=== PATIENT | male | born 1960 | race Caucasian/White ===

== ENCOUNTER 2017-09-09 08:32 | Inpatient (IN) | payer BC ==
[~2017-09-09] VITALS: Ht 180.3 cm; Wt 97.5 kg
[2017-09-09] MEDS ORDERED: BYSTOLIC10 MG ORAL (08:40)
[2017-09-09 08:49] VITALS: BP 120/72
--- NOTE | 2017-09-09 08:55 | Emergency Room Report ---
History of Present Illness General Chief Complaint: General Complaint Source: Patient Present Illness [facility] Patient presents with complaints of increased swelling and redness to the left lower leg Patient reports significant previous drug abuse and infections in the past Patient also has heart valve replacement and has had endocarditis 2 days ago felt low-grade fever and chills Today noticed increased redness in the left leg and presents for further eval Denies any chest pain or pleurisy denies any vomiting or diarrhea Denies any neck pain or photophobia Pain to the leg is 6 out of 10 Allergies: Coded Allergies: No Known Allergies (Unverified , 09/09/17) Patient History Past Medical History: see triage record Pertinent Family History: none Reviewed Nursing Documentation: PMH: Agreed; PSxH: Agreed Review of Systems All Other Systems: negative except mentioned in HPI Physical Exam Vital Signs Date Time Temp Pulse Resp B/P (MAP) Pulse Ox O2 Delivery O2 Flow Rate FiO2 09/09/17 08:35 99.3 76 18 120/72 96 Room Air 99.3 Sp02 EP Interpretation: reviewed, normal General Appearance: well appearing, no apparent distress Head: normocephalic, atraumatic Eyes: bilateral eye PERRL, bilateral eye EOMI ENT: hearing grossly normal, normal pharynx, TMs + canals normal, uvula midline Neck: full range of motion, supple, no meningismus, no bony tend Respiratory: lungs clear, normal breath sounds, no rhonchi, no respiratory distress, no retraction, no accessory muscle use Cardiovascular #1: normal peripheral pulses, regular rate, rhythm, no edema, no gallop, no JVD, systolic murmur Gastrointestinal: normal bowel sounds, non tender, soft, no mass, no organomegaly, non-distended, no guarding, no hernia, no pulsatile mass, no rebound Genitourinary: no CVA tenderness Musculoskeletal: inflammation, swelling Neurologic: oriented x3, responsive, supervisor vat house III-XII nml as tested, motor strength/ tone normal, sensory intact Psychiatric: mood/affect normal Skin: other - Erythema circumferentially involving the left calf, tender to touch, mild swelling associated neurovascularly intact with good cap refills Lymphatic: normal inspection, no adenopathy Medical Decision Making Diagnostic Impression: Primary Impression: Cellulitis Additional Impression: Sepsis ER Course Multiple differentials considered Given the patient's multiple comorbidities including heart valve and previous endocarditis patient initiated on aggressive antibiotics hydration Ultrasound was also obtained for inpatient for further evaluation And patient stable for inpatient care Labs Test 09/09/17 09:13 White Blood Count 27.6 K/UL (4.8-10.8) Red Blood Count 5.28 M/UL (4.70-6.10) Hemoglobin 15.8 G/DL (14.2-18.0) Hematocrit 45.7 % (42.0-52.0) Mean Corpuscular Volume 87 FL (80-99) Mean Corpuscular Hemoglobin 30.0 PG (27.0-31.0) Mean Corpuscular Hemoglobin Concent 34.6 G/DL (32.0-36.0) Red Cell Distribution Width 12.0 % (11.6-14.8) Platelet Count 146 K/UL (150-450) Mean Platelet Volume 9.5 FL (6.5-10.1) Neutrophils (%) (Auto) % (45.0-75.0) Lymphocytes (%) (Auto) % (20.0-45.0) Monocytes (%) (Auto) % (1.0-10.0) Eosinophils (%) (Auto) % (0.0-3.0) Basophils (%) (Auto) % (0.0-2.0) Differential Total Cells Counted 100 Neutrophils % (Manual) 90 % (45-75) Lymphocytes % (Manual) 5 % (20-45) Monocytes % (Manual) 5 % (1-10) Eosinophils % (Manual) 0 % (0-3) Basophils % (Manual) 0 % (0-2) Band Neutrophils 0 % (0-8) Platelet Estimate Adequate Platelet Morphology Normal Red Blood Cell Morphology Normal Sodium Level 133 MMOL/L (136-145) Potassium Level 4.5 MMOL/L (3.5-5.1) Chloride Level 100 MMOL/L (98-107) Carbon Dioxide Level 24 MMOL/L (21-32) Anion Gap 9 mmol/L (5-15) Blood Urea Nitrogen 18 mg/dL (7-18) Creatinine 1.2 MG/DL (0.55-1.30) Estimat Glomerular Filtration Rate > 60 mL/min (>60) Glucose Level 155 MG/DL (74-106) Lactic Acid Level 1.80 mmol/L (0.66-2.22) Calcium Level 9.4 MG/DL (8.5-10.1) Total Bilirubin 1.0 MG/DL (0.2-1.0) Aspartate Amino Transf (AST/SGOT) 24 U/L (15-37) Alanine Aminotransferase (ALT/SGPT) 21 U/L (12-78) Alkaline Phosphatase 72 U/L (46-116) Total Creatine Kinase 73 U/L (26-308) Creatine Kinase MB < 0.5 NG/ML (0.0-3.6) Creatine Kinase MB Relative Index Total Protein 7.9 G/DL (6.4-8.2) Albumin 3.3 G/DL (3.4-5.0) Globulin 4.6 g/dL Albumin/Globulin Ratio 0.7 (1.0-2.7) Rhythm Strip Diag. Results EP Interpretation: yes Rate: 77 Rhythm: NSR, no PVC's, no ectopy Last Vital Signs Date Time Temp Pulse Resp B/P (MAP) Pulse Ox O2 Delivery O2 Flow Rate FiO2 09/09/17 08:49 99.3 76 18 120/72 96 Room Air 99.3 Status: improved Disposition: ADMITTED INPATIENT Condition: Serious Referrals: NOT APPLICABLE THIS PATIENT,RE (PCP) Katalina Cruz DO Sep 09, 2017 08:55
[2017-09-09] MEDS ORDERED: cefTRIAXone 1 GM in NS 55 ML IVPB ONE (09:00)
[2017-09-09] MEDS ORDERED: NS 1000ml 2,900 ML IVLG ONE (09:00)
[2017-09-09] MEDS: Morphine Sulfate 4mg/ml Inj IVP ONE ×2 (09:00→09:29)
[2017-09-09] MEDS ORDERED: Vancomycin 1.5gm/D5W 250ml 250 ML IVPB ONE (09:00)
[2017-09-09] MEDS ORDERED: cefTRIAXone 1 GM in D5W 55 ML IVPB SCH (09:30)
[2017-09-09 09:52] LABS: HEMATOCRIT 45.7 % (42.0-52.0); HEMOGLOBIN 15.8 G/DL (14.2-18.0); MEAN CORPUSCULAR VOLUME 87 FL (80-99); PLATELET COUNT 146 K/UL (150-450); RED BLOOD COUNT 5.28 M/UL (4.70-6.10)
[2017-09-09 09:57] LABS: WHITE BLOOD COUNT 27.6 K/UL (4.8-10.8)
[2017-09-09 10:23] LABS: ANION GAP 9 mmol/L (5-15); BLOOD UREA NITROGEN 18 mg/dL (7-18); CALCIUM 9.4 MG/DL (8.5-10.1); CARBON DIOXIDE 24 MMOL/L (21-32); CHLORIDE 100 MMOL/L (98-107); CREATININE 1.2 MG/DL (0.55-1.30); POTASSIUM 4.5 MMOL/L (3.5-5.1); SODIUM 133 MMOL/L (136-145)
[2017-09-09 10:37] LABS: ALANINE AMINOTRANSFERASE 21 U/L (12-78); ALBUMIN 3.3 G/DL (3.4-5.0); ALBUMIN/GLOBULIN RATIO 0.7 (1.0-2.7); ALKALINE PHOSPHATASE 72 U/L (46-116); ASPARTATE AMINO TRANSFERASE 24 U/L (15-37); CKMB < 0.5 NG/ML (0.0-3.6); CREATINE KINASE 73 U/L (26-308)
[2017-09-09 10:40] VITALS: BP 124/76
[2017-09-09 11:12] VITALS: BP 102/56
[2017-09-09] MEDS ORDERED: Cefepime HCl 1 GM in D5W 55 ML IVPB SCH (14:30)
[2017-09-09 15:53] VITALS: BP 108/57
[2017-09-09 19:49] VITALS: BP 124/75
[2017-09-09] MEDS: Cefepime HCl 1 GM in D5W 55 ML IVPB SCH (19:57)
[2017-09-09] MEDS: Vancomycin 1250mg/D5W 250ml IVPB SCH (20:38)
[2017-09-10 00:05] VITALS: BP 119/74
--- NOTE | 2017-09-10 02:30 | History and Physical Report ---
DATE OF ADMISSION: 09/09/2017 REASON FOR ADMISSION: Left lower extremity cellulitis. HISTORY OF PRESENT ILLNESS: This is a 56-year-old white male with history of vascular disease due to prior history of heroin injection, who developed some pain and redness of his left leg 1 to 2 days ago. Tactile fevers were noted as well and chills last night and based on his knowledge of prior infections, he came to the emergency room for treatment of cellulitis. The patient has not used heroin for almost 12 years. PAST MEDICAL HISTORY: Notable for endocarditis with subsequent pulmonic valve repair and prosthesis, hypertension, peripheral artery disease, and chronic osteomyelitis of the right tibia. ALLERGIES: None. FAMILY HISTORY: Noncontributory. SOCIAL HISTORY: No active smoking or alcohol. Prior heroin abuse as noted above. REVIEW OF SYSTEMS: A 10-point review of systems performed, all systems negative other than noted. PHYSICAL EXAMINATION: VITAL SIGNS: Temperature 99.3 degrees, blood pressure 120/72, heart rate 76, and respiratory rate 18. HEENT: Conjunctivae pink. Sclerae are anicteric. Oropharynx clear. Mucous membranes moist. NECK: Supple. Jugular venous pressure normal. No adenopathy. LUNGS: Clear. CARDIAC: Regular rhythm and rate. Normal S1 and S2. No appreciable murmur. ABDOMEN: Soft and nontender. EXTREMITIES: With 1+ edema on the left leg below the knee and warm, erythematous changes. There is also old stasis derm and healed infection site discolorations noted bilaterally. LABORATORY AND DIAGNOSTIC DATA: White count is 27.6 and hemoglobin 15.8. Sodium 133, potassium 4.5, bicarbonate 24, BUN 18, and creatinine 1.2. Lactic acid 1.8. Albumin 3.3. EKG, sinus rhythm with no acute abnormalities. Chest x-ray is pending for review. IMPRESSION: 1. Left lower extremity cellulitis. 2. Peripheral artery disease. 3. Distant history of heroin abuse. 4. History of pulmonic valve replacement. PLAN: 1. Hydration. 2. Broad-spectrum antibiotics. 3. Infectious Disease consultation. 4. Skin care. 5. DVT prophylaxis. 6. Echocardiogram. 7. Follow up results of cultures taken in the emergency room. Richard Goodman M.D. DR: FELECIA JOB#: [id number] CC:
[2017-09-10 04:06] VITALS: BP 124/64
[2017-09-10 08:23] VITALS: BP 129/82
[2017-09-10] MEDS: Cefepime HCl 1 GM in D5W 55 ML IVPB SCH ×2 (09:04→19:58)
[2017-09-10] MEDS: Vancomycin 1250mg/D5W 250ml IVPB SCH ×2 (10:23→17:59)
[2017-09-10 12:00] VITALS: BP 143/85
[2017-09-10] MEDS ORDERED: Heparin 2000 units/Ns 1000ml IV PRN (14:00)
[2017-09-10] MEDS ORDERED: Lidocaine 1% Plain 30 ml INJ PRN (14:00)
[2017-09-10 16:00] VITALS: BP 136/90
--- NOTE | 2017-09-10 16:31 | Diagnostic Imaging Report ---
Indications: Needs long-term IV access Technique: Ultrasound confirms patent compressible left basilic vein. Total sterile technique, including sterile probe cover and sterile gel, hat, mask,, sterile gown, large sterile drape, and preparation with 2% chlorhexidine utilized. Local anesthesia with 1% lidocaine. Under real-time ultrasound guidance, puncture basilic vein using 21-gauge needle, documented and archived, passage 0.018 guidewire under direct fluoroscopy, which was used to determine appropriate catheter length, exchange for 5 Telugu peel-away sheath. 5 Telugu Bard dual-lumen power PICC cut to 47 cm. It was inserted through the peel-away sheath. Peel-away sheath and guidewire removed. Catheter fixed to the skin. Both catheter ports aspirated and flushed. Patient tolerated procedure well, without immediate complication. Digital radiograph documents satisfactory catheter tip position, at the cavoatrial junction. Total fluoroscopy time 0.7 minutes. Total dose area product 16 dGycm2 Impression: Successful placement of left arm PICC under sonographic and fluoroscopic guidance, as described above.
--- NOTE | 2017-09-10 18:15 | Consultation ---
DATE OF CONSULTATION: 09/10/2017 INFECTIOUS DISEASE CONSULTATION CONSULTING PHYSICIAN: Juan Eaton M.D. REFERRING PHYSICIAN: Richard Goodman M.D. REASON FOR CONSULTATION: Left leg cellulitis. HISTORY OF PRESENTING ILLNESS: This is a 56-year-old gentleman with history of prior heroin injection years ago who developed some pain and redness and swelling in his left leg. He says he has not injected in years, but has had recurrent left leg cellulitis. An Infectious Diseases consultation has been obtained for antibiotics. PAST MEDICAL HISTORY: 1. History of endocarditis with pulmonary valve repair and valve replacement. 2. History of hypertension. 3. Peripheral arterial disease. 4. Chronic osteomyelitis of the right tibia. 5. Recurrent cellulitis of the left leg. MEDICATIONS: As an inpatient, he is on nebivolol, subcutaneous heparin, IV vancomycin, cefepime, Tylenol and Zofran. ALLERGIES: No known drug allergies. SOCIAL HISTORY: No history of smoking or alcohol, but he does have a history of prior intravenous heroin abuse years ago. FAMILY HISTORY: Positive for heart disease. REVIEW OF SYSTEMS: RESPIRATORY: He had fever and chills. No cough. No shortness of breath or chest pain. CARDIAC: No chest pain. No palpitations. No dizziness. No syncope. GASTROINTESTINAL: He had nausea. No vomiting. No abdominal pain or diarrhea. PHYSICAL EXAMINATION: VITAL SIGNS: Temperature of 99 degrees, T-max of 99.3 degrees, pulse of 70, respiratory rate 20, blood pressure 129/82 and O2 saturation of 99%. HEENT: Pupils equally reactive to light and accommodation. Mouth appears clean without thrush. NECK: Supple. No adenopathy. No JVD. CARDIOVASCULAR: Regular rate and rhythm. No murmurs. LUNGS: Clear to auscultation bilaterally. No crackles. No wheezes. ABDOMEN: Soft and nontender. No organomegaly. EXTREMITIES: No cyanosis, no clubbing, and no edema. Left leg erythema noted. LABORATORY AND DIAGNOSTIC DATA: White count 27.6, hemoglobin 15.8, hematocrit 45.7, MCV 87, and platelet count of 146,000 with neutrophils of 90%. Sodium 133, potassium 4.5, chloride 100, bicarbonate 24, BUN 18, creatinine 1.2 and glucose 155. Calcium 9.4. Total bilirubin 1. AST 24, ALT 21 and alkaline phosphatase 72. CK of 73. CK-MB less than 0.5. Total protein 7.9. Albumin 3.3. ASSESSMENT: 1. This is a 56-year-old, gentleman with history of hypertension as well as endocarditis with a pulmonary valve repair and valve replacement who comes in with recurrent left leg cellulitis. 2. He has history of prior heroin intravenous drug use. PLAN: 1. Continue IV vancomycin and cefepime. 2. We will order a 2D echocardiogram. 3. We will follow up blood cultures. I would like to thank, Dr. Goodman, for this consultation. Juan Eaton M.D. DR: GEOVANNY JOB#: [id number] CC: Richard Goodman M.D.
[2017-09-10 19:39] VITALS: BP 127/77
[2017-09-10] MEDS: Heparin 5000 units/ml inj SUBQ SCH (19:59)
[2017-09-11] VITALS: BP 100/60
--- NOTE | 2017-09-11 03:45 | Progress Note ---
DATE: 09/10/2017 INTERNAL MEDICINE PROGRESS NOTE SUBJECTIVE: The patient has poor IV access for infusion of antibiotics and blood draws. A PICC line was placed. The patient has headache and states that he usually takes his beta-lexi for migraines as well as blood pressure. OBJECTIVE: VITAL SIGNS: Blood pressure 122/65, pulse 69, respiratory rate 18, and afebrile. T-max 99.5. HEENT: Oropharynx clear with no thrush. NECK: Supple. LUNGS: Clear. CARDIAC: Regular rhythm and rate. Normal S1 and S2 with no murmur. ABDOMEN: Soft. EXTREMITIES: With no change in left lower extremity, warmth, redness, erythema, and slight edema. IMPRESSION: 1. Left lower extremity cellulitis. 2. Sepsis. 3. Leukocytosis. 4. Poor IV access. 5. Distant history of heroin abuse. 6. Hypertension. 7. Migraine syndrome. 8. Chronic osteomyelitis of right leg. PLAN: 1. Advance beta-lexi. 2. Continue hydration. 3. IV antibiotics. 4. Infectious Disease consultation. 5. Follow up laboratory studies pending. Rich Larose JOB#: [id number] CC:
[2017-09-11 04:00] VITALS: BP 101/51
[2017-09-11] MEDS: Vancomycin 1250mg/D5W 250ml IVPB SCH ×2 (04:57→17:30)
[2017-09-11 07:11] LABS: ALANINE AMINOTRANSFERASE 22 U/L (12-78); ALBUMIN 2.1 G/DL (3.4-5.0); ALBUMIN/GLOBULIN RATIO 0.5 (1.0-2.7); ALKALINE PHOSPHATASE 70 U/L (46-116); ANION GAP 10 mmol/L (5-15); ASPARTATE AMINO TRANSFERASE 11 U/L (15-37); BILIRUBIN,TOTAL 0.3 MG/DL (0.2-1.0); BLOOD UREA NITROGEN 12 mg/dL (7-18); CALCIUM 8.5 MG/DL (8.5-10.1); CARBON DIOXIDE 24 MMOL/L (21-32); CHLORIDE 105 MMOL/L (98-107); POTASSIUM 2.9 MMOL/L (3.5-5.1); SODIUM 138 MMOL/L (136-145)
[2017-09-11 07:37] LABS: BASOPHILS % (AUTO) 0.4 % (0.0-2.0); EOSINOPHILS % (AUTO) 0.5 % (0.0-3.0); HEMATOCRIT 37.8 % (42.0-52.0); HEMOGLOBIN 13.5 G/DL (14.2-18.0); LYMPHOCYTES % (AUTO) 10.2 % (20.0-45.0); MEAN CORPUSCULAR VOLUME 87 FL (80-99); MONOCYTES % (AUTO) 7.7 % (1.0-10.0); NEUTROPHILS % (AUTO) 81.2 % (45.0-75.0); PLATELET COUNT 132 K/UL (150-450); RED BLOOD COUNT 4.33 M/UL (4.70-6.10)
[2017-09-11 08:00] VITALS: BP 129/90
[2017-09-11] MEDS: Heparin 5000 units/ml inj SUBQ SCH ×2 (08:27→20:19)
[2017-09-11] MEDS: Cefepime HCl 1 GM in D5W 55 ML IVPB SCH ×2 (08:28→21:34)
--- NOTE | 2017-09-11 11:05 | Infectious Diseases Prog Note ---
Assessment/Plan Assessment/Plan antibiotics : vancomycin iv, cefepime A 1. left leg cellulitis 2. history of heroin use 3. hypertension 4. s/p AVR 5. s/p pulmonary valve repair P 1. continue iv vancomycin, cefepime 2. add clindamycin 3. will follow up cultures Subjective Constitutional: Denies: fever, chills Respiratory: Denies: shortness of breath, dry cough Gastrointestinal/Abdominal: Denies: nausea, vomiting, diarrhea Musculoskeletal: Reports: pain - decreased Allergies: Coded Allergies: No Known Allergies (Unverified , 09/09/17) Objective Vital Signs Last 24 Hour Vital Signs Date Time Temp Pulse Resp B/P (MAP) Pulse Ox O2 Delivery O2 Flow Rate FiO2 09/11/17 08:00 97.8 60 19 129/90 100 Room Air 97.8 09/11/17 04:00 97.0 55 20 101/51 99 Room Air 97.0 09/11/17 00:00 97.0 52 20 100/60 100 Room Air 97.0 09/10/17 19:39 98.6 69 20 127/77 97 Room Air 98.6 09/10/17 16:17 Room Air 09/10/17 16:00 99.5 73 20 136/90 99 99.5 09/10/17 12:00 Room Air 09/10/17 12:00 98.6 72 19 143/85 97 98.6 Height (Feet): 5 Height (Inches): 11.00 Weight (Pounds): 215 Respiratory/Chest: lungs clear Cardiovascular: normal rate, regular rhythm, no gallop/murmur Abdomen: soft, non tender Extremities: other - + edema, erythema left leg Laboratory Tests Test 09/11/17 05:15 White Blood Count 16.0 K/UL (4.8-10.8) H Red Blood Count 4.33 M/UL (4.70-6.10) L Hemoglobin 13.5 G/DL (14.2-18.0) L Hematocrit 37.8 % (42.0-52.0) L Mean Corpuscular Volume 87 FL (80-99) Mean Corpuscular Hemoglobin 31.1 PG (27.0-31.0) H Mean Corpuscular Hemoglobin Concent 35.6 G/DL (32.0-36.0) Red Cell Distribution Width 12.0 % (11.6-14.8) Platelet Count 132 K/UL (150-450) L Mean Platelet Volume 10.3 FL (6.5-10.1) H Neutrophils (%) (Auto) 81.2 % (45.0-75.0) H Lymphocytes (%) (Auto) 10.2 % (20.0-45.0) L Monocytes (%) (Auto) 7.7 % (1.0-10.0) Eosinophils (%) (Auto) 0.5 % (0.0-3.0) Basophils (%) (Auto) 0.4 % (0.0-2.0) Erythrocyte Sedimentation Rate 78 MM/HR (0-20) H Sodium Level 138 MMOL/L (136-145) Potassium Level 2.9 MMOL/L (3.5-5.1) L Chloride Level 105 MMOL/L (98-107) Carbon Dioxide Level 24 MMOL/L (21-32) Anion Gap 10 mmol/L (5-15) Blood Urea Nitrogen 12 mg/dL (7-18) Creatinine 1.0 MG/DL (0.55-1.30) Estimat Glomerular Filtration Rate > 60 mL/min (>60) Glucose Level 148 MG/DL (74-106) H Calcium Level 8.5 MG/DL (8.5-10.1) Total Bilirubin 0.3 MG/DL (0.2-1.0) Aspartate Amino Transf (AST/SGOT) 11 U/L (15-37) L Alanine Aminotransferase (ALT/SGPT) 22 U/L (12-78) Alkaline Phosphatase 70 U/L (46-116) Total Protein 6.0 G/DL (6.4-8.2) L Albumin 2.1 G/DL (3.4-5.0) L Globulin 3.9 g/dL Albumin/Globulin Ratio 0.5 (1.0-2.7) L Current Medications Medications (Trade) Dose Ordered Sig/Arian Route PRN Reason Start Time Stop Time Status Last Admin Dose Admin Acetaminophen (Tylenol) 650 mg Q4H PRN ORAL Mild Pain/Temp > 100.5 09/09/17 13:30 10/09/17 13:29 09/10/17 02:25 Cefepime HCl 1 gm/ Dextrose 55 ml @ 110 mls/hr EVERY 12 HOURS IVPB 09/09/17 21:00 09/16/17 20:59 09/11/17 08:28 Heparin Sodium (Porcine) (Heparin 5000 units/ml) 5,000 units EVERY 12 HOURS SUBQ 09/10/17 21:00 10/10/17 20:59 Nebivolol (Bystolic) 20 mg DAILY@0630 ORAL 09/11/17 06:30 10/11/17 06:29 Ondansetron HCl (Zofran) 4 mg Q6H PRN IVP Nausea & Vomiting 09/09/17 13:30 10/09/17 13:29 Potassium Chloride (K-Dur) 40 meq ONCE ORAL 09/11/17 11:00 09/11/17 12:00 Sodium Chloride 1,000 ml @ 100 mls/hr Q10H IV 09/09/17 11:45 10/09/17 11:44 09/11/17 04:50 Vancomycin HCl (Vanco rx to dose) 1 ea DAILY PRN MISC Per rx protocol 09/09/17 11:30 10/09/17 11:29 Vancomycin HCl/ Dextrose 250 ml @ 166.667 mls/hr Q12HR@0600,1800 IVPB 09/10/17 18:00 09/14/17 20:59 09/11/17 04:57 KELL DE LEON Sep 11, 2017 11:05
[2017-09-11 12:00] VITALS: BP 118/82
[2017-09-11] MEDS: Clindamycin 600mg 50 ML IV SCH ×2 (13:59→22:34)
[2017-09-11 16:00] VITALS: BP 123/79
[2017-09-11] MEDS ORDERED: Tubing IV Secondary IV ONE (20:38)
[2017-09-11 20:58] VITALS: BP 135/80
[2017-09-11] MEDS: Dyna-Hex 2% Top Sol 2oz TOPIC SCH (21:33)
--- NOTE | 2017-09-12 00:30 | Progress Note ---
DATE: 09/11/2017 INTERNAL MEDICINE PROGRESS NOTE SUBJECTIVE: The patient still has pain in his left leg. Swelling and redness have persisted. Vitals are stable. The patient had a PICC line placed for adequate IV access. LABORATORY DATA: White count has decreased to 16. Chemistry panel notable for potassium of 2.9, albumin 2.1. IMPRESSION: 1. Cellulitis, left lower extremity. 2. Hypokalemia. 3. Moderate protein-calorie malnutrition. 4. Peripheral artery disease. PLAN: 1. Continue IV antibiotics. 2. Protein supplement. 3. Check MRI of the leg. 4. Infectious Disease consultation appreciated. Richard Goodman M.D. DR: Loki JOB#: [id number] CC:
[2017-09-12 00:54] VITALS: BP 123/78
[2017-09-12 05:46] LABS: ANION GAP 7 mmol/L (5-15); BLOOD UREA NITROGEN 17 mg/dL (7-18); CALCIUM 8.8 MG/DL (8.5-10.1); CARBON DIOXIDE 27 MMOL/L (21-32); CHLORIDE 104 MMOL/L (98-107); CREATININE 1.1 MG/DL (0.55-1.30); POTASSIUM 3.8 MMOL/L (3.5-5.1); SODIUM 138 MMOL/L (136-145)
[2017-09-12 05:48] LABS: BASOPHILS % (AUTO) 1.2 % (0.0-2.0); EOSINOPHILS % (AUTO) 1.1 % (0.0-3.0); HEMATOCRIT 37.6 % (42.0-52.0); HEMOGLOBIN 13.3 G/DL (14.2-18.0); LYMPHOCYTES % (AUTO) 15.2 % (20.0-45.0); MEAN CORPUSCULAR VOLUME 87 FL (80-99); MONOCYTES % (AUTO) 9.1 % (1.0-10.0); NEUTROPHILS % (AUTO) 73.4 % (45.0-75.0); PLATELET COUNT 159 K/UL (150-450); RED BLOOD COUNT 4.31 M/UL (4.70-6.10); RED CELL DISTRIBUTION WIDTH 12.1 % (11.6-14.8)
[2017-09-12 06:00] VITALS: BP 152/89
[2017-09-12] MEDS: Clindamycin 600mg 50 ML IV SCH ×3 (06:00→20:38)
[2017-09-12] MEDS: Vancomycin 1250mg/D5W 250ml IVPB SCH ×3 (06:47→22:56)
[2017-09-12 08:00] VITALS: BP 156/74
[2017-09-12] MEDS: Cefepime HCl 1 GM in D5W 55 ML IVPB SCH ×2 (09:21→20:38)
[2017-09-12] MEDS: Heparin 5000 units/ml inj SUBQ SCH ×2 (09:23→20:40)
[2017-09-12 12:00] VITALS: BP 148/84
--- NOTE | 2017-09-12 13:00 | Infectious Diseases Prog Note ---
Assessment/Plan Assessment/Plan A 1. left leg cellulitis 2. history of heroin use 3. hypertension 4. s/p AVR 5. s/p pulmonary valve repair P 1. continue iv vancomycin, cefepime and clindamycin 2. will follow up cultures & MRI Subjective Constitutional: Reports: no symptoms Respiratory: Reports: no symptoms Cardiovascular: Reports: no symptoms Gastrointestinal/Abdominal: Reports: no symptoms Genitourinary: Reports: no symptoms Musculoskeletal: Reports: pain, other - in left leg Allergies: Coded Allergies: No Known Allergies (Unverified , 09/09/17) Objective Vital Signs Last 24 Hour Vital Signs Date Time Temp Pulse Resp B/P (MAP) Pulse Ox O2 Delivery O2 Flow Rate FiO2 09/12/17 12:00 97.9 59 18 148/84 Room Air 97.9 09/12/17 08:00 97.9 60 18 156/74 97.9 09/12/17 06:00 97.9 61 18 152/89 100 Room Air 97.9 09/12/17 00:54 97.0 59 18 123/78 98 Room Air 97.0 09/11/17 20:58 99.3 63 18 135/80 96 Room Air 99.3 09/11/17 16:00 98.0 68 19 123/79 99 Room Air 98.0 Height (Feet): 5 Height (Inches): 11.00 Weight (Pounds): 215 General Appearance: no acute distress HEENT: mucous membranes moist Respiratory/Chest: lungs clear Cardiovascular: normal rate, systolic murmur Abdomen: soft, non tender Extremities: other - edema, erythema & tenderness of left legs above ankle Skin: other - skin scars in both legs Neurologic/Psychiatric: alert, oriented x 3, responsive Laboratory Tests Test 09/12/17 05:00 White Blood Count 13.0 K/UL (4.8-10.8) H Red Blood Count 4.31 M/UL (4.70-6.10) L Hemoglobin 13.3 G/DL (14.2-18.0) L Hematocrit 37.6 % (42.0-52.0) L Mean Corpuscular Volume 87 FL (80-99) Mean Corpuscular Hemoglobin 30.8 PG (27.0-31.0) Mean Corpuscular Hemoglobin Concent 35.3 G/DL (32.0-36.0) Red Cell Distribution Width 12.1 % (11.6-14.8) Platelet Count 159 K/UL (150-450) Mean Platelet Volume 9.4 FL (6.5-10.1) Neutrophils (%) (Auto) 73.4 % (45.0-75.0) Lymphocytes (%) (Auto) 15.2 % (20.0-45.0) L Monocytes (%) (Auto) 9.1 % (1.0-10.0) Eosinophils (%) (Auto) 1.1 % (0.0-3.0) Basophils (%) (Auto) 1.2 % (0.0-2.0) Sodium Level 138 MMOL/L (136-145) Potassium Level 3.8 MMOL/L (3.5-5.1) Chloride Level 104 MMOL/L (98-107) Carbon Dioxide Level 27 MMOL/L (21-32) Anion Gap 7 mmol/L (5-15) Blood Urea Nitrogen 17 mg/dL (7-18) Creatinine 1.1 MG/DL (0.55-1.30) Estimat Glomerular Filtration Rate > 60 mL/min (>60) Glucose Level 128 MG/DL (74-106) H Calcium Level 8.8 MG/DL (8.5-10.1) Magnesium Level 1.8 MG/DL (1.8-2.4) Vancomycin Level Trough 9.5 ug/mL (5.0-12.0) Current Medications Medications (Trade) Dose Ordered Sig/Arian Route PRN Reason Start Time Stop Time Status Last Admin Dose Admin Acetaminophen (Tylenol) 650 mg Q4H PRN ORAL Mild Pain/Temp > 100.5 09/09/17 13:30 10/09/17 13:29 09/10/17 02:25 Cefepime HCl 1 gm/ Dextrose 55 ml @ 110 mls/hr EVERY 12 HOURS IVPB 09/09/17 21:00 09/16/17 20:59 09/12/17 09:21 Chlorhexidine Gluconate (Fiona-Hex 2%) 1 applic DAILY@2000 TOPIC 09/11/17 21:00 10/12/17 19:59 09/11/17 21:33 Clindamycin HCl/ Dextrose 50 ml @ 100 mls/hr Q8HR IV 09/11/17 14:00 09/18/17 13:59 09/12/17 06:00 Heparin Sodium (Porcine) (Heparin 5000 units/ml) 5,000 units EVERY 12 HOURS SUBQ 09/10/17 21:00 10/10/17 20:59 09/12/17 09:23 Nebivolol (Bystolic) 20 mg DAILY@0630 ORAL 09/11/17 06:30 10/11/17 06:29 09/12/17 06:11 Ondansetron HCl (Zofran) 4 mg Q6H PRN IVP Nausea & Vomiting 09/09/17 13:30 10/09/17 13:29 Sodium Chloride 1,000 ml @ 100 mls/hr Q10H IV 09/09/17 11:45 10/09/17 11:44 09/11/17 17:37 Vancomycin HCl (Vanco rx to dose) 1 ea DAILY PRN MISC Per rx protocol 09/09/17 11:30 10/09/17 11:29 Vancomycin HCl/ Dextrose 250 ml @ 166.667 mls/hr Q8HR IVPB 09/12/17 06:10 09/15/17 17:59 09/12/17 06:47 MARYANN DE JESUS Sep 12, 2017 13:00
[2017-09-12 16:00] VITALS: BP 143/88
--- NOTE | 2017-09-12 17:51 | Cardiology Report ---
APPROVED REPORT EKG Measurement Heart [id number] Normal sinus rhythm Normal ECG
[2017-09-12 20:00] VITALS: BP 145/93
[2017-09-12] MEDS ORDERED: Dyna-Hex 2% Top Sol 2oz TOPIC SCH (20:00)
[2017-09-12] MEDS: Dyna-Hex 2% Top Sol 2oz TOPIC SCH (20:37)
[2017-09-13] MEDS ORDERED: Gadavist 7.5mMol/7.5ml vial IV PRN (01:45)
[2017-09-13 04:00] VITALS: BP 129/88
[2017-09-13] MEDS: Clindamycin 600mg 50 ML IV SCH ×3 (05:45→22:41)
[2017-09-13] MEDS: Vancomycin 1250mg/D5W 250ml IVPB SCH ×3 (06:30→23:56)
--- NOTE | 2017-09-13 07:45 | Progress Note ---
DATE: 09/12/2017 INTERNAL MEDICINE PROGRESS NOTE SUBJECTIVE: Pain is slightly diminished in the left leg, but the ankle is worse. Redness has diminished. OBJECTIVE: Vital signs are stable. Exam as noted. IMPRESSION: 1. History of pulmonary valve replacement. 2. Left leg cellulitis. 3. Ankle pain. 4. History of heroin abuse. 5. Hypertension. PLAN: 1. Continue intravenous antibiotics. 2. Skin care. 3. Await MRI studies. 4. Echocardiogram will be reviewed. Richard Goodman M.D. DR: DARWIN JOB#: [id number] CC:
[2017-09-13 07:51] VITALS: BP 117/72
[2017-09-13] MEDS: Cefepime HCl 1 GM in D5W 55 ML IVPB SCH ×2 (08:56→20:41)
[2017-09-13] MEDS: Heparin 5000 units/ml inj SUBQ SCH ×2 (08:58→20:44)
--- NOTE | 2017-09-13 10:55 | Cardiology Report ---
APPROVED REPORT EXAM: Two-dimensional and M-mode echocardiogram with Doppler and color Doppler. INDICATION ENDOCARDITIS M-Mode DIMENSIONS IVSd0.9 (0.7-1.1cm)Left Atrium (MM)3.2 (1.6-4.0cm) LVDd5.8 (3.5-5.6cm)Aortic Root3.3 (2.0-3.7cm) PWd1.1 (0.7-1.1cm)Aortic Cusp Exc.1.9 (1.5-2.0cm) IVSs1.7 cm LVDs4.0 (2.5-4.0cm) PWs1.7 cm Technically difficult study due to poor apical acoustical windows. Normal left ventricular chamber size, systolic function and wall motion to extent visualized. Left ventricular ejection fraction estimated to be 60%. No evidence of left ventricular hypertrophy . No evidence of pericardial effusion. All other cardiac chamber sizes are within normal limits. Mildly Focal aortic valve sclerosis with adequate cusp excursion. MildlyThickened mitral valve leaflets with normal excursion. Mildly Mitral annulus and aortic root calcification. Normal pulmonic valve structure. Normal tricuspid valve structure. IVC at size 2.3 with physiologic collapse . A color flow and spectral Doppler study was performed and revealed: No aortic regurgitation. Trace mitral regurgitation. Normal left ventricular diastolic function . Mild tricuspid regurgitation. Tricuspid systolic velocities suggests peak right ventricular systolic pressure of 39mmHg, Trace Pulmonic regurgitation present.
--- NOTE | 2017-09-13 11:36 | Infectious Diseases Prog Note ---
Assessment/Plan Assessment/Plan antibiotics : vancomycin iv, cefepime, clindamycin A 1. left leg cellulitis improving 2. history of heroin use 3. hypertension 4. s/p AVR 5. s/p pulmonary valve repair P 1. continue iv vancomycin, cefepime, clindamycin 2. will follow up cultures Subjective Constitutional: Denies: fever, chills Respiratory: Denies: shortness of breath, dry cough Gastrointestinal/Abdominal: Denies: nausea, vomiting, diarrhea Musculoskeletal: Reports: pain - decreased Allergies: Coded Allergies: No Known Allergies (Unverified , 09/09/17) Objective Vital Signs Last 24 Hour Vital Signs Date Time Temp Pulse Resp B/P (MAP) Pulse Ox O2 Delivery O2 Flow Rate FiO2 09/13/17 07:51 97.7 53 20 117/72 97 Room Air 97.7 09/13/17 04:00 97.3 59 20 129/88 Room Air 97.3 09/12/17 20:00 97.7 63 20 145/93 Room Air 97.7 09/12/17 16:00 97.8 60 19 143/88 Room Air 97.8 09/12/17 12:00 97.9 59 18 148/84 Room Air 97.9 Height (Feet): 5 Height (Inches): 11.00 Weight (Pounds): 215 Respiratory/Chest: lungs clear Cardiovascular: normal rate, regular rhythm, no gallop/murmur Abdomen: soft, non tender Extremities: other - left leg erythema decreased, + edema Current Medications Medications (Trade) Dose Ordered Sig/Arian Route PRN Reason Start Time Stop Time Status Last Admin Dose Admin Acetaminophen (Tylenol) 650 mg Q4H PRN ORAL Mild Pain/Temp > 100.5 09/09/17 13:30 10/09/17 13:29 09/10/17 02:25 Cefepime HCl 1 gm/ Dextrose 55 ml @ 110 mls/hr EVERY 12 HOURS IVPB 09/09/17 21:00 09/16/17 20:59 09/13/17 08:56 Chlorhexidine Gluconate (Fiona-Hex 2%) 1 applic DAILY@2000 TOPIC 09/11/17 21:00 10/12/17 19:59 09/12/17 20:37 Clindamycin HCl/ Dextrose 50 ml @ 100 mls/hr Q8HR IV 09/11/17 14:00 09/18/17 13:59 09/13/17 05:45 Gadobutrol (Gadavist) 7.5 mmol NOW PRN IV Radiology Procedure 09/13/17 01:45 09/13/17 23:59 Heparin Sodium (Porcine) (Heparin 5000 units/ml) 5,000 units EVERY 12 HOURS SUBQ 09/10/17 21:00 10/10/17 20:59 09/13/17 08:58 Nebivolol (Bystolic) 20 mg DAILY@0630 ORAL 09/11/17 06:30 10/11/17 06:29 09/13/17 06:30 Ondansetron HCl (Zofran) 4 mg Q6H PRN IVP Nausea & Vomiting 09/09/17 13:30 10/09/17 13:29 Sodium Chloride 1,000 ml @ 75 mls/hr [id number] IV 09/13/17 11:45 10/13/17 11:44 Vancomycin HCl (Vanco rx to dose) 1 ea DAILY PRN MISC Per rx protocol 09/09/17 11:30 10/09/17 11:29 Vancomycin HCl/ Dextrose 250 ml @ 166.667 mls/hr Q8HR IVPB 09/12/17 06:10 09/15/17 17:59 09/13/17 06:30 KELL DE LEON Sep 13, 2017 11:36
[2017-09-13 12:00] VITALS: BP 134/86
[2017-09-13 16:00] VITALS: BP 148/89
[2017-09-13 19:25] VITALS: BP 145/80
[2017-09-13] MEDS: Dyna-Hex 2% Top Sol 2oz TOPIC SCH (20:41)
[2017-09-13] MEDS: Ketorolac 30mg Inj IV PRN (21:37)
--- NOTE | 2017-09-13 22:15 | Progress Note ---
DATE: 09/13/2017 CARDIOLOGY PROGRESS NOTE SUBJECTIVE: The patient had an MRI scan of his left leg today including the ankle, results are pending. The patient's pain is somewhat better, but still not improved in the ankle region with ambulation and weightbearing. OBJECTIVE: VITAL SIGNS: Vitals are stable with blood pressure elevations on occasion up to 148/89. EXTREMITIES: Left leg reveals slight decrease in erythema. IMPRESSION: 1. Valvular heart disease. 2. History of prostatic pulmonary valve. 3. Left lower extremity cellulitis. 4. History of chronic osteomyelitis of the right tibia. 5. History of heroin abuse. PLAN: 1. Continue antibiotics. 2. Skin care. Titration of antihypertensives as needed. 3. No signs of endocarditis based on recent echocardiogram, but we will follow closely for new signs of infection and we will review results of MRI once available and finalize length of antibiotic course. Richard Goodman M.D. DR: FELECIA JOB#: [id number] CC:
[2017-09-13 23:31] VITALS: BP 134/78
[2017-09-14 04:17] VITALS: BP 142/79
[2017-09-14] MEDS: Clindamycin 600mg 50 ML IV SCH ×3 (06:46→20:54)
[2017-09-14] MEDS: Ketorolac 30mg Inj IV PRN ×3 (07:53→21:42)
[2017-09-14 08:00] VITALS: BP 131/75
[2017-09-14] MEDS: Vancomycin 1250mg/D5W 250ml IVPB SCH ×2 (08:05→21:23)
[2017-09-14] MEDS ORDERED: Sodium Chloride 500ML 550 ML IV SCH (08:15)
--- NOTE | 2017-09-14 09:37 | Diagnostic Imaging Report ---
Indication: Leg swelling and pain Technique: MRI examination of the left tibia was performed in a 1.5 Ora magnet. Sequences obtained include multiplanar T1 and T2 fast spin echo, and STIR. Comparison: none Findings: There is generalized subcutaneous edema present. The anterior and posterior compartments of the leg appear normal. There is no evidence of fascial fluid collection or intramuscular signal abnormalities. Bone marrow signal within the tibia and fibula appear normal. No ulceration identified on the MR exam. IMPRESSION: Subcutaneous edema nonspecific in nature. No abscess, myositis, or acute osteomyelitis.
[2017-09-14] MEDS: Heparin 5000 units/ml inj SUBQ SCH ×2 (09:47→20:02)
[2017-09-14] MEDS: Cefepime HCl 1 GM in D5W 55 ML IVPB SCH ×3 (09:47→20:04)
--- NOTE | 2017-09-14 10:43 | Infectious Diseases Prog Note ---
Assessment/Plan Assessment/Plan antibiotics : vancomycin iv, cefepime, clindamycin A 1. left leg cellulitis improving 2. history of heroin use 3. hypertension 4. s/p AVR 5. s/p pulmonary valve repair P 1. continue iv vancomycin, cefepime, clindamycin 2. will follow up cultures Subjective Constitutional: Denies: fever, chills Respiratory: Denies: shortness of breath, dry cough Gastrointestinal/Abdominal: Denies: nausea, vomiting, diarrhea Musculoskeletal: Reports: pain - decreased Allergies: Coded Allergies: No Known Allergies (Unverified , 09/09/17) Objective Vital Signs Last 24 Hour Vital Signs Date Time Temp Pulse Resp B/P (MAP) Pulse Ox O2 Delivery O2 Flow Rate FiO2 09/14/17 08:00 98.2 58 16 131/75 98 Room Air 98.2 09/14/17 04:17 98.6 52 20 142/79 96 Room Air 98.6 09/13/17 23:31 97.2 67 20 134/78 97 Room Air 97.2 09/13/17 22:07 99.5 09/13/17 21:37 99.5 09/13/17 19:25 99.5 68 20 145/80 99 Room Air 99.5 09/13/17 16:00 97.6 59 18 148/89 100 Room Air 97.6 09/13/17 12:00 98.4 61 18 134/86 100 Room Air 98.4 Height (Feet): 5 Height (Inches): 11.00 Weight (Pounds): 215 Respiratory/Chest: lungs clear Cardiovascular: normal rate, regular rhythm, no gallop/murmur Abdomen: soft, non tender Extremities: other - left leg erythema, swelling decreasing Current Medications Medications (Trade) Dose Ordered Sig/Arian Route PRN Reason Start Time Stop Time Status Last Admin Dose Admin Acetaminophen (Tylenol) 650 mg Q4H PRN ORAL Mild Pain/Temp > 100.5 09/09/17 13:30 10/09/17 13:29 09/10/17 02:25 Cefepime HCl 1 gm/ Dextrose 55 ml @ 110 mls/hr EVERY 12 HOURS IVPB 09/09/17 21:00 09/16/17 20:59 09/14/17 09:47 Chlorhexidine Gluconate (Fiona-Hex 2%) 1 applic DAILY@1999 TOPIC 09/11/17 21:00 10/12/17 19:59 09/13/17 20:41 Clindamycin HCl/ Dextrose 50 ml @ 100 mls/hr Q8HR IV 09/11/17 14:00 09/18/17 13:59 09/14/17 06:46 Heparin Sodium (Porcine) (Heparin 5000 units/ml) 5,000 units EVERY 12 HOURS SUBQ 09/10/17 21:00 10/10/17 20:59 09/13/17 20:44 Ketorolac Tromethamine (Toradol 30mg) 15 mg TIDPRN PRN IV pain 4-09/13/17 20:45 09/18/17 20:44 09/14/17 07:53 Nebivolol (Bystolic) 20 mg DAILY@0630 ORAL 09/11/17 06:30 10/11/17 06:29 09/14/17 06:46 Ondansetron HCl (Zofran) 4 mg Q6H PRN IVP Nausea & Vomiting 09/09/17 13:30 10/09/17 13:29 Sodium Chloride 1,000 ml @ 75 mls/hr [id number] IV 09/13/17 11:45 10/13/17 11:44 09/14/17 06:46 Vancomycin HCl (Vanco rx to dose) 1 ea DAILY PRN MISC Per rx protocol 09/09/17 11:30 10/09/17 11:29 Vancomycin HCl/ Dextrose 250 ml @ 166.667 mls/hr Q8HR IVPB 09/12/17 06:10 09/15/17 17:59 09/14/17 08:05 KELL DE LEON September 14, 2017 10:43
[2017-09-14 12:00] VITALS: BP 127/63
--- NOTE | 2017-09-14 12:08 | Diagnostic Imaging Report ---
Indication: Left lower leg and ankle swelling and redness pain x5 days. No history of trauma. The clinical concern is osteomyelitis or infection. Technique: The study protocol is for infection. Left ankle/hind foot imaging utilizing multiplanar T1 fast spin-echo, and STIR. Comparison: None Findings: Bone marrow signal normal. There is no evidence of acute osteomyelitis. There is generalized subcutaneous edema. No abscess identified. Within the tarsal sinus adjacent to the interosseous ligament there is a ovoid approximately 7 mm x 10 mm ganglion cyst. This is incidental. Signal within the tarsal sinus is otherwise normal. No obvious articular abnormalities identified. The study was not protocoled for ligament or tendon evaluation but no obvious abnormalities are identified. The Achilles tendon and plantar aponeurosis appear unremarkable. The major ligaments appear intact. IMPRESSION: No evidence of abscess or acute osteomyelitis. Incidental 10 x 7 mm ganglion cyst within the tarsal sinus.
[2017-09-14] MEDS: Vancomycin 1250mg/D5W 250ml 250 ML IVPB SCH ×2 (14:45→21:24)
[2017-09-14 15:58] VITALS: BP 117/54
[2017-09-14 20:00] VITALS: BP 153/80
[2017-09-14] MEDS: Dyna-Hex 2% Top Sol 2oz TOPIC SCH (20:02)
[2017-09-15 00:25] VITALS: BP 147/76
--- NOTE | 2017-09-15 00:30 | Progress Note ---
DATE: 09/14/2017 INTERNAL MEDICINE PROGRESS NOTE SUBJECTIVE: The patient is complaining of foot pain and no ankle pain. MRIs have been reviewed. There is an incidental ganglion cyst of the ankle tendon, but there is no sign of muscular or bony involvement of the leg infection on the left. OBJECTIVE: VITAL SIGNS: Stable. He is afebrile. EXTREMITIES: Reveals significant decrease in left lower extremity erythema. IMPRESSION: Improved cellulitis. No signs of myositis or osteomyelitis. Foot pain may be due to gout. PLAN: Continue antibiotics. DVT prophylaxis. Mobilization efforts. Check uric acid. Podiatry consult. Richard Goodman M.D. DR: Shan JOB#: [id number] CC:
[2017-09-15 04:00] VITALS: BP 147/81
[2017-09-15] MEDS: Clindamycin 600mg 50 ML IV SCH (04:53)
[2017-09-15] MEDS: Vancomycin 1250mg/D5W 250ml IVPB SCH (05:23)
[2017-09-15] MEDS: Vancomycin 1250mg/D5W 250ml 250 ML IVPB SCH ×3 (05:24→22:00)
[2017-09-15 05:43] LABS: BASOPHILS % (AUTO) 1.6 % (0.0-2.0); EOSINOPHILS % (AUTO) 1.5 % (0.0-3.0); HEMATOCRIT 35.7 % (42.0-52.0); HEMOGLOBIN 12.8 G/DL (14.2-18.0); LYMPHOCYTES % (AUTO) 16.5 % (20.0-45.0); MEAN CORPUSCULAR VOLUME 86 FL (80-99); MONOCYTES % (AUTO) 8.3 % (1.0-10.0); NEUTROPHILS % (AUTO) 72.1 % (45.0-75.0); PLATELET COUNT 198 K/UL (150-450); RED BLOOD COUNT 4.13 M/UL (4.70-6.10); RED CELL DISTRIBUTION WIDTH 11.6 % (11.6-14.8); WHITE BLOOD COUNT 10.7 K/UL (4.8-10.8)
[2017-09-15 05:59] LABS: ALANINE AMINOTRANSFERASE 39 U/L (12-78); ALBUMIN 1.8 G/DL (3.4-5.0); ALBUMIN/GLOBULIN RATIO 0.5 (1.0-2.7); ALKALINE PHOSPHATASE 56 U/L (46-116); ANION GAP 7 mmol/L (5-15); ASPARTATE AMINO TRANSFERASE 24 U/L (15-37); BILIRUBIN,TOTAL 0.2 MG/DL (0.2-1.0); BLOOD UREA NITROGEN 13 mg/dL (7-18); CALCIUM 7.2 MG/DL (8.5-10.1); CARBON DIOXIDE 25 MMOL/L (21-32); CHLORIDE 109 MMOL/L (98-107); CREATININE 0.9 MG/DL (0.55-1.30); POTASSIUM 3.2 MMOL/L (3.5-5.1); SODIUM 141 MMOL/L (136-145)
[2017-09-15 08:00] VITALS: BP 129/79
[2017-09-15] MEDS: Heparin 5000 units/ml inj SUBQ SCH ×2 (08:31→21:10)
[2017-09-15] MEDS: Cefepime HCl 1 GM in D5W 55 ML IVPB SCH ×2 (10:03→21:06)
[2017-09-15 12:13] VITALS: BP 143/64
--- NOTE | 2017-09-15 13:07 | Infectious Diseases Prog Note ---
Assessment/Plan Assessment/Plan A 1. left leg cellulitis 2. history of heroin use 3. hypertension 4. s/p AVR 5. s/p pulmonary valve repair P 1. continue iv vancomycin, cefepime 2. discontinue clindamycin Subjective ROS Limited/Unobtainable: No Constitutional: Reports: no symptoms, other - doing better Respiratory: Reports: no symptoms Genitourinary: Reports: no symptoms Neurologic: Reports: no symptoms Musculoskeletal: Reports: pain, other - on standing in the leftt foot Allergies: Coded Allergies: No Known Allergies (Unverified , 09/09/17) Objective Vital Signs Last 24 Hour Vital Signs Date Time Temp Pulse Resp B/P (MAP) Pulse Ox O2 Delivery O2 Flow Rate FiO2 09/15/17 12:13 97.7 52 16 143/64 97.7 09/15/17 08:00 97.2 54 15 129/79 97.2 09/15/17 04:45 98.1 09/15/17 04:00 98.3 58 19 147/81 99 98.3 09/15/17 03:46 98.1 09/15/17 00:25 98.1 62 19 147/76 100 98.1 09/14/17 22:12 99.1 09/14/17 21:42 99.1 09/14/17 20:00 98.3 65 20 153/80 100 98.3 09/14/17 15:58 99.1 54 20 117/54 99 99.1 Height (Feet): 5 Height (Inches): 11.00 Weight (Pounds): 215 General Appearance: no acute distress HEENT: mucous membranes moist Respiratory/Chest: lungs clear Cardiovascular: normal rate, other - left arm PICC line Abdomen: soft, non tender Extremities: other - edema of left leg Skin: ulcers, other - erythema of left leg decreasing Neurologic/Psychiatric: alert, oriented x 3, responsive Laboratory Tests Test 09/15/17 05:15 White Blood Count 10.7 K/UL (4.8-10.8) Red Blood Count 4.13 M/UL (4.70-6.10) L Hemoglobin 12.8 G/DL (14.2-18.0) L Hematocrit 35.7 % (42.0-52.0) L Mean Corpuscular Volume 86 FL (80-99) Mean Corpuscular Hemoglobin 30.9 PG (27.0-31.0) Mean Corpuscular Hemoglobin Concent 35.8 G/DL (32.0-36.0) Red Cell Distribution Width 11.6 % (11.6-14.8) Platelet Count 198 K/UL (150-450) Mean Platelet Volume 8.0 FL (6.5-10.1) Neutrophils (%) (Auto) 72.1 % (45.0-75.0) Lymphocytes (%) (Auto) 16.5 % (20.0-45.0) L Monocytes (%) (Auto) 8.3 % (1.0-10.0) Eosinophils (%) (Auto) 1.5 % (0.0-3.0) Basophils (%) (Auto) 1.6 % (0.0-2.0) Erythrocyte Sedimentation Rate 63 MM/HR (0-20) H Sodium Level 141 MMOL/L (136-145) Potassium Level 3.2 MMOL/L (3.5-5.1) L Chloride Level 109 MMOL/L (98-107) H Carbon Dioxide Level 25 MMOL/L (21-32) Anion Gap 7 mmol/L (5-15) Blood Urea Nitrogen 13 mg/dL (7-18) Creatinine 0.9 MG/DL (0.55-1.30) Estimat Glomerular Filtration Rate > 60 mL/min (>60) Glucose Level 112 MG/DL (74-106) H Uric Acid 4.2 MG/DL (2.6-7.2) Calcium Level 7.2 MG/DL (8.5-10.1) L Total Bilirubin 0.2 MG/DL (0.2-1.0) Aspartate Amino Transf (AST/SGOT) 24 U/L (15-37) Alanine Aminotransferase (ALT/SGPT) 39 U/L (12-78) Alkaline Phosphatase 56 U/L (46-116) Total Protein 5.4 G/DL (6.4-8.2) L Albumin 1.8 G/DL (3.4-5.0) L Globulin 3.6 g/dL Albumin/Globulin Ratio 0.5 (1.0-2.7) L Current Medications Medications (Trade) Dose Ordered Sig/Arian Route PRN Reason Start Time Stop Time Status Last Admin Dose Admin Acetaminophen (Tylenol) 650 mg Q4H PRN ORAL Mild Pain/Temp > 100.5 09/09/17 13:30 10/09/17 13:29 09/15/17 03:46 Cefepime HCl 1 gm/ Dextrose 55 ml @ 110 mls/hr EVERY 12 HOURS IVPB 09/14/17 21:00 09/21/17 23:59 09/15/17 10:03 Chlorhexidine Gluconate (Fiona-Hex 2%) 1 applic DAILY@2000 TOPIC 09/11/17 21:00 10/12/17 19:59 09/14/17 20:02 Clindamycin HCl/ Dextrose 50 ml @ 100 mls/hr Q8HR IV 09/11/17 14:00 09/18/17 13:59 09/15/17 04:53 Heparin Sodium (Porcine) (Heparin 5000 units/ml) 5,000 units EVERY 12 HOURS SUBQ 09/10/17 21:00 10/10/17 20:59 09/15/17 08:31 Ketorolac Tromethamine (Toradol 30mg) 15 mg TIDPRN PRN IV pain 4-09/13/17 20:45 09/18/17 20:44 09/14/17 21:42 Nebivolol (Bystolic) 20 mg DAILY@0630 ORAL 09/11/17 06:30 10/11/17 06:29 09/15/17 05:41 Ondansetron HCl (Zofran) 4 mg Q6H PRN IVP Nausea & Vomiting 09/09/17 13:30 10/09/17 13:29 Sodium Chloride 1,000 ml @ 75 mls/hr [id number] IV 09/13/17 11:45 10/13/17 11:44 09/15/17 04:53 Vancomycin HCl (Vanco rx to dose) 1 ea DAILY PRN MISC Per rx protocol 09/09/17 11:30 10/09/17 11:29 Vancomycin HCl/ Dextrose 250 ml @ 166.667 mls/hr Q8HR IVPB 09/14/17 14:00 09/18/17 23:59 09/15/17 05:24 MARYANN DE JESUS September 15, 2017 13:07
[2017-09-15] MEDS: Ketorolac 30mg Inj IV PRN ×2 (15:36→18:50)
[2017-09-15 15:41] VITALS: BP 143/84
--- NOTE | 2017-09-15 19:30 | Progress Note ---
DATE: 09/15/2017 INTERNAL MEDICINE PROGRESS NOTE SUBJECTIVE: The patient has less pain overall. OBJECTIVE: Vitals are stable. Afebrile. White count is down to 10,000. Exam, otherwise, without change. IMPRESSION: 1. Significant improvement in left lower extremity cellulitis with no radiographic evidence of deep tissue involvement or bony involvement. 2. History of pulmonic valve replacement. 3. Microvascular disease. PLAN: 1. Continue intravenous antibiotics. 2. Local skin care. 3. Discharge planning in the next 24 to 48 hours on oral therapy if continued clinical progress. Richard Goodman M.D. DR: GILBERTO JOB#: [id number] CC:
[2017-09-15 20:00] VITALS: BP 145/86
[2017-09-15] MEDS: Dyna-Hex 2% Top Sol 2oz TOPIC SCH (21:06)
[2017-09-16] VITALS: BP 123/77
[2017-09-16] MEDS: Ketorolac 30mg Inj IV PRN ×3 (03:54→14:40)
[2017-09-16 04:00] VITALS: BP 142/85
[2017-09-16] MEDS: Vancomycin 1250mg/D5W 250ml 250 ML IVPB SCH ×2 (06:01→14:40)
[2017-09-16 08:00] VITALS: BP 136/77
[2017-09-16] MEDS: Cefepime HCl 1 GM in D5W 55 ML IVPB SCH (08:47)
[2017-09-16] MEDS: Heparin 5000 units/ml inj SUBQ SCH (09:01)
--- NOTE | 2017-09-16 10:34 | Infectious Diseases Prog Note ---
Assessment/Plan Assessment/Plan antibiotics : vancomycin iv, cefepime A 1. left leg cellulitis improving 2. history of heroin use 3. hypertension 4. s/p AVR 5. s/p pulmonary valve repair P 1. continue iv vancomycin, cefepime in hospital 2. po keflex 500 mg QID 6 more days and po doxycycline 100 mg bid on discharge 6 more days 3. will follow up cultures Subjective Constitutional: Denies: fever, chills Respiratory: Denies: shortness of breath, dry cough Gastrointestinal/Abdominal: Denies: nausea, vomiting, diarrhea Musculoskeletal: Reports: pain - in left leg decreased Allergies: Coded Allergies: No Known Allergies (Unverified , 09/09/17) Objective Vital Signs Last 24 Hour Vital Signs Date Time Temp Pulse Resp B/P (MAP) Pulse Ox O2 Delivery O2 Flow Rate FiO2 09/16/17 08:00 97.7 52 18 136/77 97 97.7 09/16/17 04:00 98.2 54 18 142/85 97 Room Air 98.2 09/16/17 00:00 98.3 61 16 123/77 96 Room Air 98.3 09/15/17 20:00 98.2 60 18 145/86 99 Room Air 98.2 09/15/17 15:41 97.3 58 18 143/84 97.3 09/15/17 12:13 97.7 52 16 143/64 97.7 Height (Feet): 5 Height (Inches): 11.00 Weight (Pounds): 215 Respiratory/Chest: lungs clear Cardiovascular: normal rate, regular rhythm, no gallop/murmur Abdomen: soft, non tender Extremities: other - left leg erythema decreased Current Medications Medications (Trade) Dose Ordered Sig/Arian Route PRN Reason Start Time Stop Time Status Last Admin Dose Admin Acetaminophen (Tylenol) 650 mg Q4H PRN ORAL Mild Pain/Temp > 100.5 09/09/17 13:30 10/09/17 13:29 09/15/17 03:46 Cefepime HCl 1 gm/ Dextrose 55 ml @ 110 mls/hr EVERY 12 HOURS IVPB 09/14/17 21:00 09/21/17 23:59 09/16/17 08:47 Chlorhexidine Gluconate (Fiona-Hex 2%) 1 applic DAILY@1999 TOPIC 09/11/17 21:00 10/12/17 19:59 09/15/17 21:06 Heparin Sodium (Porcine) (Heparin 5000 units/ml) 5,000 units EVERY 12 HOURS SUBQ 09/10/17 21:00 10/10/17 20:59 09/16/17 09:01 Ketorolac Tromethamine (Toradol 30mg) 15 mg TIDPRN PRN IV pain 4-10 09/13/17 20:45 09/18/17 20:44 09/16/17 08:47 Nebivolol (Bystolic) 20 mg DAILY@0630 ORAL 09/11/17 06:30 10/11/17 06:29 09/16/17 06:00 Ondansetron HCl (Zofran) 4 mg Q6H PRN IVP Nausea & Vomiting 09/09/17 13:30 10/09/17 13:29 Sodium Chloride 1,000 ml @ 75 mls/hr [id number] IV 09/13/17 11:45 10/13/17 11:44 09/16/17 06:00 Vancomycin HCl (Vanco rx to dose) 1 ea DAILY PRN MISC Per rx protocol 09/09/17 11:30 10/09/17 11:29 Vancomycin HCl/ Dextrose 250 ml @ 166.667 mls/hr Q8HR IVPB 09/14/17 14:00 09/18/17 23:59 09/16/17 06:01 KELL DE LEON September 16, 2017 10:34
[2017-09-16 12:00] VITALS: BP 146/79
[2017-09-16] MEDS ORDERED: DOXYCYCLINE MO100 MG ORAL (14:47)
[2017-09-16] MEDS ORDERED: CEPHALEXIN500 MG ORAL (14:47)
[2017-09-16 16:00] VITALS: BP 146/79
--- NOTE | 2017-09-17 14:49 | Discharge Summary ---
Discharge Summary Discharge Summary Discharge Summary DATE OF ADMISSION: 09/09/2017 DATE OF DISCHARGE: 09/16/2017 CONSULTANTS: Dr. Juan Eaton BRIEF HOSPITAL COURSE: Patient is a 56-year-old white male with history of vascular disease due to prior heroine injection, developed pain and redness to his left leg 1-2 days prior to admission. He had tactile fevers as well as chills. He came to the emergency room for treatment. He claims to not have used heroine for almost 12 years. He has medical history notable for endocarditis with subsequent pulmonary valve repair and prostheses, hypertension, peripheral artery disease, chronic osteomyelitis of the right tibia. On evaluation at ED, blood work showed leukocytosis WBC 27.6, lactic acid 1.8. He was noted to have erythema involving the left, tender to touch, with mild swelling. He was then admitted for evaluation of cellulitis. He was seen by infectious disease specialist and was started on IV vancomycin and cefepime. He had a PICC line inserted to the left arm. Clindamycin was added to his regimen. He had echocardiogram that showed ejection fraction of 60%. No signs of endocarditis. Ankle MRI showed no evidence of abscess or acute osteomyelitis. Left leg MRI with subcutaneous edema and nonspecific in nature, no abscess, myositis, or acute osteomyelitis. Clindamycin was discontinued. Patient was cleared for discharge to continue by mouth antibiotics for 6 more days. FINAL DIAGNOSES: Left leg cellulitis Hypokalemia Moderate protein calorie malnutrition Peripheral artery disease Prior heroine use Hypertension Status post pulmonary valve repair DISPOSITION: Patient was discharged home. DISCHARGE MEDICATIONS: Refer to Discharge Medication List. Continue with Keflex 500 mg 4 times a day and doxycycline 100 mg twice a day for 6 days. DISCHARGE INSTRUCTIONS: Follow up with PCP in a week. I have been assigned to dictate discharge summary on this account, and I was not involved in the patient's management. Glendy Espinoza NP September 17, 2017 14:49
--- NOTE | 2017-09-20 10:18 | Diagnostic Imaging Report ---
APPROVED REPORT CPT Code: 13493 Symptoms Comments: Cellulitis LEFT LEG: Common femoral artery waveform analysis is within normal limits at rest. Color flow duplex sonography reveals patency of the superficial femoral, popliteal, and tibial arteries. There is no evidence of stenosis or occlusion within these segments. Doppler tibial artery waveform analysis is within normal limits.
--- NOTE | 2017-09-20 10:21 | Diagnostic Imaging Report ---
APPROVED REPORT CPT Code: 66816 Present Symptoms Comments: Left leg swelling LEFT LEG: Venous imaging reveals a patent deep venous system. There is no evidence of thrombus within the femoral, popliteal or tibial segments. The greater saphenous vein is also within normal limits. Doppler indicates normal spontaneous flow within these segments.
== END 2017-09-16 17:30 | disposition home or self-care (01) | DRG 603 ==
LOC: EMR 08:48 → 4W 08:56 → EDBEDREQ 09:07 → 4W 10:52
PROC: 02HV33Z Insertion of Infusion Device into Superior Vena Cava, Percutaneous Approach (ICD-10-PCS; principal; 2017-09-10)
DX: L03.116 Cellulitis of left lower limb (principal); E44.0 Moderate protein-calorie malnutrition; M86.68 Other chronic osteomyelitis, other site; E87.6 Hypokalemia; I73.9 Peripheral vascular disease, unspecified; F11.21 Opioid dependence, in remission; I10 Essential (primary) hypertension
CPT/HCPCS: 36415; 36569; 76937; 80048; 80053; 80202; 82550; 82553; 83605; 83735; 84550; 85007; 85025; 85651; 87040; 93005; 93306; 93926; 93971; 99285; A9585; J2405; J8499; S0077